=== PATIENT | male | born 1945 | race Caucasian/White ===

== ENCOUNTER 2017-03-26 12:14 | Inpatient (IN) | payer OTHER ==
[~2017-03-26] VITALS: Ht 177.8 cm; Wt 77.1 kg
--- NOTE | ~2017-03-26 | S ---
[facility] [place] [address] SURGICAL PATH RPT PROCEDURE Name: ANTHONY RODRIGUEZ Room #: 437-P ADM IN M.R.#: [id number] Admission: 03/26/17 Date of : 45 Discharge: Report #: [id number] Path Case #: [id number] PATHOLOGY REPORT COLLECTION DATE: 03/27/2017 RECEIVED DATE: 03/27/2017 SUBMITTING PHYS: Dr. Kasia Vanegas OTHER PHYS: Dr. Anel Wells SPECIMEN(S) RECEIVED: A.Peripheral smear * * * * * * * * * * * * FINAL DIAGNOSIS: Peripheral blood smear: - Pancytopenia including very mild normocytic to mildly microcytic anemia, mild leukopenia and moderate to severe thrombocytopenia. (See comment). COMMENT: Overall, the peripheral blood has pancytopenia including very mild normocytic to mildly microcytic anemia, mild leukopenia and moderate to severe thrombocytopenia. The etiology of the findings is unclear based entirely on slide review. Potential causes of pancytopenia include infections, drug reactions and primary bone marrow disorders. Potential causes of normocytic anemia include anemia of chronic disease, treated and/or compensated vitamin or mineral deficiencies, acute blood loss and dilutional. Causes of microcytic anemia include iron deficiency and thalassemia. Causes of thrombocytopenia include immune and non-immune platelet destruction, drug and/or toxic exposures, dilutional and primary bone marrow disorders. Correlation with clinical history and additional laboratory data is recommended. PATHOLOGIST: Zulema L. Marisa, M.D. REPORT ELECTRONICALLY SIGNED BY: Zulema Cunningham M.D. DATE/TIME: 03/27/2017 15:28 * * * * * * * * * * * * MICROSCOPIC DESCRIPTION: CBC Data (03/27/17): WBC 3,900 /uL, RBC 4.67, hemoglobin 13.9 g/dL, hematocrit 39.0%, MCV 83.5 fL, MCH 29.9 pg, MCHC 35.7 g/dL, RDW 14.2%, Platelet count 54,000 per /uL. Manual white blood cell differential: segs 79%, bands 10%, lymphs 8%, and monos 3%. Peripheral Blood Smear: Cytomorphological examination of the Mcgowan's stained peripheral [address] [address] SURGICAL PATH RPT PROCEDURE Name: MICHAELANTHONY BOWERS Room #: 437-P ADM IN M.R.#: [id number] Admission: 03/26/17 Date of : 45 Discharge: Report #: [id number] Path Case #: [id number] blood smear confirms the provided data. Red blood cells show very mild normocytic to mildly microcytic anemia with no significant anisopoikilocytosis. No schistocytes or microspherocytes are seen. White blood cells are very mildly decreased in number. They are predominantly segmented neutrophils and are without significant dyspoiesis or significant left shift. Lymphocytes are predominantly small, round, and mature appearing with condensed chromatin and scant cytoplasm with rare admixed large granular lymphocytes. On scanning, no markedly atypical lymphoid cells are seen. Monocytes are mature. Platelets are markedly decreased in number and mainly normal in morphology with rare larger platelets noted. CLINICAL HISTORY: 72 year old man with thrombocytopenia. Morphologic review of the peripheral blood smear is requested by the patient's physician. INITIAL CPT CODE(S): A; NC Professional services performed by [facility] at [place] [address], [place] [address] Technical services performed by [facility] at [address] [place] [address], [address], [place] [address]. [facility] [address] [place] [address] PHONE: [phone] DIRECTOR: Kevin Hutchins M.D. * * * END OF REPORT * * *
--- NOTE | ~2017-03-26 | S ---
[facility] [place] [address] SURGICAL PATH RPT PROCEDURE Name: ANTHONY MENDES Room #: 437-P DIS IN M.R.#: [id number] Admission: 03/26/17 Date of : 45 Discharge: 04/01/17 Report #: [id number] Path Case #: [id number] PATHOLOGY REPORT COLLECTION DATE: 03/30/2017 RECEIVED DATE: 03/31/2017 SUBMITTING PHYS: Dr. Wilder Aldana OTHER PHYS: Dr. Sidney Vanegas SPECIMEN(S) RECEIVED: A.Bone marrow, biopsy B.Bone marrow, clot and/or particle prep C.Bone marrow, aspirate smears D.Peripheral smear * * * * * * * * * * * * FINAL DIAGNOSIS: Bone marrow aspirate, biopsy, cell clot and peripheral blood: - Peripheral blood with moderate to severe pancytopenia, absolute neutropenia and myeloid left shift. - Moderately hypercellular bone marrow with minimal dyspoiesis; negative for other marrow infiltrative process (please see comment). COMMENT: The bone marrow biopsy shows minimal dyspoiesis with rare nuclear budding involving the erythroid lineage and rare hypolobated neutrophils. The myelodysplastic changes involve less than 10% of both lineages therefore, do not meet the criteria for myelodysplastic neoplasm. However, the possibility of an evolving myelodysplastic neoplasm should be considered. Other non-clonal causes of myelodysplastic changes should also be considered. Also detected is a minute lambda-restricted B-cell population by flow cytometry (0.9%). By immunohistochemical stains there are no lymphoid aggregates noted with only few scattered B-lymphoid cells and associated T-lymphoid cells are noted. 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 Correlation with the clinical findings and cytogenetic studies recommended. These findings were discussed with Dr. Kasia Vanegas on 04/03/17. PATHOLOGIST: Margie Lewis M.D. REPORT ELECTRONICALLY SIGNED BY: Margie Lewis M.D. DATE/TIME: 04/04/2017 20:56 * * * * * * * * * * * * [address] [address] SURGICAL PATH RPT PROCEDURE Name: ANTHONY MENDES Room #: 437-P [facility] IN .R.#: [id number] Admission: 03/26/17 Date of : 45 Discharge: 04/01/17 Report #: [id number] Path Case #: [id number] MICROSCOPIC DESCRIPTION: CBC Data (03/30/17): WBC 1.9, RBC 4.42, hemoglobin 13.2, hematocrit 37.0, MCV 83.6, RDW 14.2%, platelet count 49,000. White blood cell count differential: 37% segs, 9% bands, 36% lymphs, 9% monos, 9% metamyelocytes, 2% myelocytes. Peripheral Blood: Red blood cells are normochromic with minimal anisopoikilocytosis including occasional microcytic forms, elliptocytes and echinocytes. There are schistocytes or morphologic evidence of a hemolytic process identified. Platelets are severely decreased with normal morphology. White blood cells are severely decreased with predominance of lymphocytes and mature segmented neutrophils. There is mild myeloid left shift with occasional myelocytes and metamyelocytes without circulating blasts observed. The neutrophils show occasional cytoplasmic vacuoles. The lymphocytes are mostly small and mature with few atypical reactive lymphocytes. Bone Marrow Aspirate: Marrow spicules are adequate, hypercellular, and polymorphous. Megakaryocytes are present with normal morphology. Erythroid precursors show rare nuclear budding. Granulocytic precursors show rare hypolobated forms. There is no increase in blasts identified. 500 cell count: 2% blasts, 1% promyelocytes, 23% meta- and myelocytes, 30% segs and bands, 18% erythroid precursors, 12% lymphocytes, 4% monocytes, and 9% plasma cells. The M:E ratio is 3:1. Iron stain: Moderately increased marrow iron stores without ringed sideroblasts. Bone Marrow Biopsy and Cell Clot: The bone marrow core biopsy is mostly composed of cortical bone with two minute clusters of hematopoietic elements. The cell clot shows occasional clusters of hematopoietic elements with a cellularity of approximately 40-50%. Megakaryocytes average 3-5/hpf with rare hypersegmented forms. Abundant erythroid and granulocytic precursors are present without clusters of blasts, atypical lymphoid aggregates or other marrow infiltrative process. To confirm flow cytometric findings and characterize the lymphoid cells in a tissue architectural context, immunohistochemical stains are performed with appropriate controls: (Blocks A1, B1) CD20: highlights few scattered B-lymphoid cells CD3: highlights occasional T-lymphoid cells CD5: highlights occasional T-lymphoid cells CD10: highlights stromal cells and megakaryocytes BCL6: nonspecific positive staining BCL2: highlights few scattered B- and T-lymphoid cells CD43: highlights myeloid cells [place] and lambda SANCHEZ: polytypic Iron stain (A1): Moderately decreased to adequate marrow iron stores without ringed sideroblasts. [facility] [address] [place] [address] SURGICAL PATH RPT PROCEDURE Name: ANTHONY MENDES Room #: 437-P DIS IN M.R.#: [id number] Admission: 03/26/17 Date of : 45 Discharge: 04/01/17 Report #: [id number] Path Case #: [id number] Flow Cytometry: Immunophenotypic studies by flow cytometry reveal a minute lambda restricted B-cell population comprised approximately 0.9% of lymphoid cells. The lambda B-cell population detected does not show significant expression of CD5, CD10, or CD11c. T-cells comprise approximately 86% of total cells with a CD4:CD8 ratios of 1.2. NK cells comprise approximately 7% of total cells. 9% are large granular lymphocytes. There is expression of CD56 in myeloid elements which may be associated with myeloid neoplasms but may also be a reactive finding. No excess blasts or acute leukemia is detected (please see separate flow cytometry report from [facility] [id number]). GROSS PATHOLOGY: A. Received in formalin labeled "Anthony Mendes, bone marrow biopsy," is a single needle core of huerta bone, measuring 0.6 cm in length and 0.2 cm in diameter. The specimen is submitted entirely in cassette A1, following decalcification. B. Received in formalin labeled "Anthony Mendes, clot (bone marrow aspirate)," is blood coagulum, measuring 2.5 x 2.0 x 0.2 cm in aggregate dimensions. The specimen is submitted entirely in cassette B1. (KAH; 04/01/2017) PROCEDURE: See bone marrow biopsies performed by Dr. Priyank Aldana at [facility]. Specimens are submitted for morphology, flow cytometry, FISH for MDS, and cytogenetic studies. CLINICAL HISTORY: Low WBC The patient is a 72-year-old male who was noted to have leukopenia for which a bone marrow biopsy is performed. INITIAL CPT CODE(S): A; 08468, 18303 B; 84632, 01532, 05959, 03387, 37224, 93513, 47820, 46733, 51046, 86687, 15606, 84461, 99584, 98009 C; 01052, 51333, [address] Professional services performed by [facility] at [facility], [address] [place] [address]. Technical services performed by [facility] at [address] [place] [address], [address], [place] [address]. [facility] [address] [address] PHONE: [phone] [address] SURGICAL PATH RPT PROCEDURE Name: ANTHONY MENDES Room #: 437-P DIS IN M.R.#: [id number] Admission: 03/26/17 Date of : 45 Discharge: 04/01/17 Report #: [id number] Path Case #: [id number] DIRECTOR: Kevin Hutchins M.D. * * * END OF REPORT * * *
--- NOTE | ~2017-03-26 | HC ---
[facility] [place] [address] CONSULTATION Name: ANTHONY RODRIGUEZ Room #: 437-P [facility] IN M.R.#: [id number] Admission: 03/26/17 Attend Phys: Russell Little MD Discharge: Date of : 45 Report #: [id number] THIS REPORT FOR: //name// CC: Zbigniew Little INFECTIOUS DISEASE CONSULTATION REASON FOR CONSULTATION: I was asked to evaluate concerning fever, hiccups, neutropenia, thrombocytopenia. 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 No headache or definite photophobia. No rash. No adenopathy. In addition, stated that he has had intermittent low-grade fever with sweats for several years. "He is praying his calves had been healthy". 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 No travel outside the [place]. Lives alone. No reported HIV risk factors. He has had hiccups before over the last several years. These hiccups now lasted for several weeks. REVIEW OF SYSTEMS: As noted above with minimal cough. No pleuritic chest pain. No definite arthritis. He had an episode of confusion day of admission where had difficulty in remembering how to take a shower and states that his mental status has returned back to normal. No seizure activity. No history of stroke. He has had no weakness on either side of his body. Denies any dysuria or frequency, hematuria, blood in the stool. Does have hemorrhage. ALLERGIES: CONTRAST DYE. MEDICATIONS: Prior to his admission, aspirin, metoprolol, simvastatin. PAST MEDICAL HISTORY: Ankle fracture, hypertension, hyperlipidemia. SOCIAL HISTORY: Minimal alcohol use. Nonsmoker, no IV drug use. FAMILY HISTORY: Noncontributory. PHYSICAL EXAMINATION: VITAL SIGNS: Temperature up to 102.1 degrees this a.m., hemodynamically stable. GENERAL: He was alert and cooperative. He had intermittent hiccups. SKIN: Without rashes or decubiti. No adenopathy. HEENT: Conjunctival edema, mild. MOUTH: Unremarkable. NECK: Supple, no thyromegaly. [address] [address] CONSULTATION Name: ANTHONY RODRIGUEZ GODDARD Room #: 437-P [facility] IN M.R.#: [id number] Admission: 03/26/17 Attend Phys: Russell Little MD Discharge: Date of : 45 Report #: [id number] LUNGS: Clear. HEART: Regular, without murmur. ABDOMEN: Soft, no hepatosplenomegaly or mass appreciated. EXTERNAL GENITALIA: Unremarkable. PERIANAL EXAMINATION: With hemorrhoids, nonthrombosed. RECTAL: Not performed. EXTREMITIES: Unremarkable. NEUROLOGIC: Nonfocal. LABORATORY STUDIES: Hemoglobin 13.9, white cell count 3.9, 79% segs, 10% bands, platelet count 54,000, yesterday his white cell count was 1.8, with a 56% segs, 11% bands. Lactate 1.3. Sodium 132, potassium 4.2, bicarbonate 25, creatinine 1.5, lipase 726. Liver function tests normal. Troponin negative. Urinalysis unremarkable. Blood culture x 1 today was pending. Chest x-ray clear. Abdominal x-ray unremarkable. 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 Less likely autoimmune or malignancy. RECOMMENDATION: We will continue with doxycycline and ceftriaxone. Repeat blood cultures. Follow up with a CT scan of his abdomen and pelvis. Viral screen, peripheral blood smear, EBV, CMV, and HIV testing, serologies for tick-borne processes and include Brucella, Coxiella and Leptospirosis . We will also obtain an WILMAR. <ELECTRONICALLY SIGNED> By: Joni Esposito MD 03/28/17 0943 [id number] Joni Esposito MD /nt
[~2017-03-26 12:14] MED LIST: ARED EYE VITAMIN; ASPIR 8181 MG PO; LOPRESSOR50 MG PO; NABUMETONE 500500 M1 PO; NEURONTIN 300300 M1 PO; SIMVASTATIN40 MG PO
[2017-03-26 12:53] VITALS: BP 141/87
[2017-03-26 13:32] LABS: HEMOGLOBIN 15.7 gm/dL (14.0-18.0)
[2017-03-26 13:33] LABS: HEMATOCRIT 44.6 % (42.0-52.0); MCH 29.7 pg (26.0-34.0); MCHC 35.1 g/dL (28.0-37.0); MCV 84.4 fL (80.0-100.0); RBC 5.28 mil/uL (4.50-6.00)
[2017-03-26 13:36] LABS: ANION GAP 10 mmol/L (7-16); BUN 29 mg/dL (7-18); CHLORIDE 97 mmol/L (98-107); CO2 25 mmol/L (21-32); CREATININE 1.5 mg/dL (0.7-1.3); GLUCOSE 146 mg/dL (74-106); MANUAL DIFF YES; POTASSIUM 4.2 mmol/L (3.5-5.1); SODIUM 132 mmol/L (136-145)
[2017-03-26 13:38] LABS: WBC 1.8 thou/uL (4.0-11.0)
[2017-03-26 13:43] LABS: ALBUMIN 3.8 g/dL (3.4-5.0); ALKALINE PHOSPHATASE 53 U/L (46-116); DIRECT BILIRUBIN < 0.1 mg/dL (<0.1-0.3); SGOT 51 U/L (15-37); SGPT 51 U/L (30-65); TOTAL BILIRUBIN 0.6 mg/dL (<0.1-1.0); TOTAL PROTEIN 7.1 g/dL (6.4-8.2); TROPONIN-I < 0.04 ng/mL (<0.04-0.07)
[2017-03-26 13:57] LABS: ABSOLUTE NEUTROPHILS 1.2 thou/uL (1.4-8.2); TOTAL CELL COUNT 100
[2017-03-26 13:58] LABS: PLATELET COUNT 76 thou/uL (150-400); PLATELET ESTIMATE DECREASED
[2017-03-26] MEDS ORDERED: LEVAQUIN 750 M750 MG PO (16:00)
[2017-03-26] MEDS ORDERED: AUGMENTIN 875-1 EACH PO (16:00)
[2017-03-26] MEDS ORDERED: CHLORPROMAZINE25 M1 PO (16:02)
[2017-03-26 16:20] LABS: URINE BILIRUBIN 1+ (Negative); URINE BLOOD TRACE (Negative); URINE COLOR YELLOW; URINE GLUCOSE-RANDOM* NEGATIVE (Negative); URINE KETONES TRACE (Negative); URINE LEUKOCYTES-REFLEX NEGATIVE (Negative); URINE PROTEIN (DIPSTICK) 2+ (Negative); URINE SPECIFIC GRAVITY >= 1.030 (1.003-1.035); URINE UROBILINOGEN 0.2 E.U./dl (0.2-1.0)
[2017-03-26 16:21] LABS: ICTOTEST (BILI CONFIRMATORY) Negative (Negative)
[2017-03-26 16:33] VITALS: BP 136/80
[2017-03-26 16:36] LABS: CASTS None Seen /LPF (None Seen); CRYSTALS None Seen /LPF (None Seen); SQUAMOUS None Seen /LPF (0-3); URINE RBC None Seen /HPF (0-2); URINE WBC-REFLEX 0-5 Rare /HPF (0-5)
[2017-03-26 18:05] VITALS: BP 123/78
[2017-03-27 04:22] VITALS: BP 136/66
[2017-03-27 06:03] LABS: HEMOGLOBIN 13.9 gm/dL (14.0-18.0); MCH 29.9 pg (26.0-34.0); MCHC 35.7 g/dL (28.0-37.0); MCV 83.5 fL (80.0-100.0); RBC 4.67 mil/uL (4.50-6.00); RDW 14.2 % (10.5-14.5); WBC 3.9 thou/uL (4.0-11.0)
[2017-03-27 06:07] LABS: MANUAL DIFF YES
[2017-03-27 07:39] LABS: ABSOLUTE NEUTROPHILS 3.5 thou/uL (1.4-8.2); PLATELET COUNT 54 thou/uL (150-400); TOTAL CELL COUNT 100
[2017-03-27 07:40] LABS: ANISOCYTOSIS SLIGHT
[2017-03-27 08:11] VITALS: BP 111/64
[2017-03-27 08:30] LABS: INR 1.1; PROTIME 11.5 Seconds (9.3-11.4)
[2017-03-27 08:55] LABS: FOLIC ACID 15.1 ng/mL (8.6-58.9)
[2017-03-27 14:09] LABS: HEPATITIS C VIRUS AB <0.1 (0.0-0.9); HIV ANTIBODY Non Reactive (Non Reactive)
[2017-03-27 15:51] VITALS: BP 125/71
[2017-03-27 19:21] VITALS: BP 113/73
[2017-03-28 04:41] VITALS: BP 114/64
[2017-03-28 08:46] VITALS: BP 100/65
[2017-03-28 09:55] LABS: ABSOLUTE NEUTROPHILS 2.5 thou/uL (1.4-8.2); BASOPHILS 0.5 % (0.0-2.0); HEMOGLOBIN 13.8 gm/dL (14.0-18.0); WBC 3.4 thou/uL (4.0-11.0)
[2017-03-28 09:57] LABS: HEMATOCRIT 39.1 % (42.0-52.0); LYMPHOCYTES 20.6 % (24.0-44.0); MANUAL DIFF NO; MCH 29.3 pg (26.0-34.0); MCHC 35.2 g/dL (28.0-37.0); MCV 83.3 fL (80.0-100.0); POLYS 74.9 % (36.0-66.0); RDW 14.3 % (10.5-14.5)
[2017-03-28 10:08] LABS: CALCIUM 7.5 mg/dL (8.5-10.1); CREATININE 1.1 mg/dL (0.7-1.3); POTASSIUM 3.6 mmol/L (3.5-5.1)
[2017-03-28 10:17] LABS: LARGE PLATELETS FEW; PLATELET ESTIMATE DECREASED
[2017-03-28 10:18] LABS: PLATELET COUNT 48 thou/uL (150-400)
[2017-03-28 16:09] VITALS: BP 103/68
[2017-03-28 19:30] VITALS: BP 112/63
[2017-03-29 02:10] LABS: ANTI-EBNA 24.2 U/mL (0.0-17.9); ANTI-VCA/IgG >600.0 U/mL (0.0-17.9)
[2017-03-29 05:10] VITALS: BP 99/63
[2017-03-29 08:00] VITALS: BP 119/65
[2017-03-29 16:00] VITALS: BP 116/54
[2017-03-29 20:10] VITALS: BP 96/59
[2017-03-30 04:20] VITALS: BP 111/74
[2017-03-30 04:47] LABS: HEMOGLOBIN 13.2 gm/dL (14.0-18.0); MCH 29.9 pg (26.0-34.0); MCHC 35.7 g/dL (28.0-37.0); MCV 83.6 fL (80.0-100.0); RBC 4.42 mil/uL (4.50-6.00); RDW 14.2 % (10.5-14.5)
[2017-03-30 04:50] LABS: WBC 1.9 thou/uL (4.0-11.0)
[2017-03-30 04:54] LABS: CREATININE 0.9 mg/dL (0.7-1.3); POTASSIUM 3.4 mmol/L (3.5-5.1)
[2017-03-30 08:00] VITALS: BP 119/78
[2017-03-30 15:52] VITALS: BP 119/80
[2017-03-30 19:40] VITALS: BP 117/71
[2017-03-31 05:28] VITALS: BP 113/65
[2017-03-31 08:44] VITALS: BP 103/67
[2017-03-31 09:34] VITALS: BP 103/67
[2017-03-31 10:06] LABS: LYME ANTIBODY SCREEN* <0.91 ISR (0.00-0.90)
[2017-03-31 11:23] VITALS: BP 117/72
[2017-03-31 16:32] VITALS: BP 122/68
[2017-03-31 17:09] LABS: EHRLICHIA AB (HGE) Negative (Neg:<1:64); EHRLICHIA AB (HME) Negative (Neg:<1:20)
[2017-03-31 19:08] LABS: HISTOPLASMA MYCELIAL-ID Negative (Negative)
[2017-03-31 19:20] VITALS: BP 115/65
[2017-03-31 23:10] LABS: ROCKY MTN SPOT FEVER IgM 0.23 index (0.00-0.89)
[2017-04-01 04:37] VITALS: BP 106/71
[2017-04-01 06:14] LABS: HEMATOCRIT 38.8 % (42.0-52.0); HEMOGLOBIN 13.7 gm/dL (14.0-18.0); MCH 29.5 pg (26.0-34.0); MCHC 35.4 g/dL (28.0-37.0); MCV 83.4 fL (80.0-100.0); PLATELET COUNT 81 thou/uL (150-400); RBC 4.65 mil/uL (4.50-6.00); RDW 14.3 % (10.5-14.5); WBC 2.3 thou/uL (4.0-11.0)
[2017-04-01 06:17] LABS: MANUAL DIFF YES
[2017-04-01 06:32] LABS: CALCIUM 8.7 mg/dL (8.5-10.1); CREATININE 0.9 mg/dL (0.7-1.3); POTASSIUM 3.6 mmol/L (3.5-5.1)
[2017-04-01 07:26] LABS: ABSOLUTE NEUTROPHILS 0.7 thou/uL (1.4-8.2); ATYPICAL LYMPHS 2 %; METAMYELOCYTES 3 %; MYELOCYTES 3 %; TOTAL CELL COUNT 100
[2017-04-01 07:27] LABS: ANISOCYTOSIS SLIGHT
[2017-04-01 08:00] VITALS: BP 125/67
[2017-04-01 12:05] VITALS: BP 125/67
[2017-04-01] MEDS ORDERED: DOXYCYCLINE 10100 MG PO ×2 (12:08→13:08)
[2017-04-01] MEDS ORDERED: CHLORPROMAZINE25 M1 PO (13:11)
[2017-04-01] MEDS ORDERED: ZOFRAN ODT4 MG DISSOLVE (13:11)
[2017-04-01 15:06] LABS: ROCKY MTN SPOT FEVER IgG Equivocal (Negative)
[2017-04-01 22:07] LABS: HISTOPLASMA MYCELIAL-CF Negative (Neg:<1:2); HISTOPLASMA YEAST BY CF Negative (Neg:<1:2)
== END 2017-04-01 14:10 | disposition home or self-care (01) | DRG 808 ==
LOC: ER 12:14 → EROBS 16:41 → 4S 16:41
PROVIDERS: Emergency Medicine; Family Medicine; Internal Medicine Hematology & Oncology; Specialist
PROC: 07DR3ZX Extraction of Iliac Bone Marrow, Percutaneous Approach, Diagnostic (ICD-10-PCS; principal; 2017-03-31)
DX: D70.3 Neutropenia due to infection (principal); N17.0 Acute kidney failure with tubular necrosis; R65.11 Systemic inflammatory response syndrome (SIRS) of non-infectious origin with acute organ dysfunction; D61.818 Other pancytopenia; R50.81 Fever presenting with conditions classified elsewhere; R06.6 Hiccough; I10 Essential (primary) hypertension; E78.5 Hyperlipidemia, unspecified; Z87.81 Personal history of (healed) traumatic fracture; Z79.899 Other long term (current) drug therapy; Z91.041 Radiographic dye allergy status